=== PATIENT | female | born 1990 | race Caucasian/White ===

== ENCOUNTER 2021-05-28 14:48 | Observation (INO) | payer BC ==
[2021-05-28] MEDS ORDERED: Lactated Ringers 1,000 ML IV ONE (15:10)
[2021-05-28] MEDS ORDERED: Acetaminophen 325 MG Tab PO PRN ×3 (15:40→17:43)
[2021-05-28] MEDS ORDERED: Lactated Ringers 1,000 ML IV SCH (15:45)
[2021-05-28 16:45] LABS: ANION GAP 20.3 mEq/L (7-13); CHLORIDE,CL 103 mmol/L (98-107); SODIUM,NA 138 mmol/L (136-145)
[2021-05-28] MEDS ORDERED: MVI, Adult with Vitamin K 10 ML, Folic Acid 1 MG, Thiamine 100 MG in Lactated Ringers 1... IV ONE ×4 (16:54)
[2021-05-28] MEDS ORDERED: NS + KCl 20mEq/L 1,000 ML IV SCH (17:00)
[2021-05-28] MEDS ORDERED: Carboprost Tromethamine 250 MCG/1 ML Amp IM PRN ×2 (17:16→17:43)
[2021-05-28] MEDS ORDERED: Tranexamic Acid 1,000 MG in Sodium Chloride 0.9% 100 ML IV PRN ×2 (17:16→17:43)
[2021-05-28] MEDS ORDERED: Ondansetron 4 MG/2 ML SDV IVPUSH PRN ×2 (17:16→17:43)
[2021-05-28] MEDS ORDERED: Lidocaine 1% 30 ML SDV INJECT PRN ×2 (17:16→17:43)
[2021-05-28] MEDS ORDERED: Misoprostol 400 MCG (4 X 100 MCG TAB) RECTAL PRN ×2 (17:16→17:43)
[2021-05-28] MEDS ORDERED: fentaNYL 100 MCG/2 ML SDV IVPUSH PRN (17:16)
[2021-05-28] MEDS ORDERED: Methylergonovine 0.2 MG/1 ML Amp IM PRN ×2 (17:16→17:43)
[2021-05-28] MEDS ORDERED: Oxytocin/Normal Saline 30 UNIT/500 ML BAG IV SCH ×2 (17:30→17:45)
[2021-05-28] MEDS ORDERED: Famotidine 20 MG/2 ML SDV IVPUSH PRN (17:43)
[2021-05-28] MEDS ORDERED: Calcium Carbonate 500 MG Tab.Chew PO PRN (17:43)
[2021-05-28] MEDS ORDERED: Naloxone 2 MG/2 ML Syringe IVPUSH PRN (17:45)
[2021-05-28] MEDS ORDERED: Lactated Ringers 500 ML IV SCH ×2 (17:45)
[2021-05-28] MEDS ORDERED: Promethazine 25 MG/ML SDV IM PRN (17:45)
[2021-05-28] MEDS ORDERED: ePHEDrine 50 MG/ML SDV IVPUSH PRN (17:45)
[2021-05-28] MEDS ORDERED: fentaNYL 100 MCG/2 ML SDV IVPUSH ONE (18:07)
[2021-05-28] MEDS ORDERED: Docusate Sodium 100 MG Cap PO PRN (20:29)
[2021-05-28] MEDS ORDERED: Ibuprofen 800 MG Tab PO PRN (20:29)
[2021-05-28] MEDS ORDERED: Benzocaine/Menthol 20%-0.5% Spray 78 GM Cannister TOP PRN (20:29)
[2021-05-28] MEDS ORDERED: Zolpidem 5 MG Tab PO PRN (20:29)
[2021-05-28] MEDS ORDERED: Oxytocin 10 Units/1 ML SDV IM PRN (20:29)
[2021-05-28] MEDS ORDERED: Simethicone 80 MG Tab.Chew PO PRN (20:29)
[2021-05-28] MEDS ORDERED: Sodium Chloride 0.9% 10 ML Syringe FLUSH PRN (20:29)
[2021-05-28] MEDS ORDERED: Measles, Mumps & Rubella Vaccine 0.5 ML SDV SUBCUT ONE (20:29)
[2021-05-28] MEDS ORDERED: Witch Hazel Medicated Pads 100/Jar TOP PRN (22:05)
[2021-05-29] MEDS ORDERED: Prenatal Multivitamin with Calcium/Folic Acid/Iron Tab PO SCH (09:00)
[2021-05-29] MEDS ORDERED: Measles, Mumps & Rubella Vaccine 0.5 ML SDV SUBCUT ONE (14:00)
[2021-05-29] MEDS ORDERED: Docusate Sodium 100 MG Cap PO PRN (21:51)
[2021-05-29] MEDS ORDERED: Ibuprofen 800 MG Tab PO PRN (21:51)
== END 2021-05-30 11:41 | disposition home or self-care (01) ==
LOC: DL.OBCHECK 14:48 → DL.OB 15:53
PROVIDERS: ADMIT Family Medicine; ATTEND Family Medicine
DX: O99.891 Other specified diseases and conditions complicating pregnancy (principal); R19.7 Diarrhea, unspecified; E86.0 Dehydration; Z86.16 Personal history of COVID-19; Z90.49 Acquired absence of other specified parts of digestive tract; Z98.890 Other specified postprocedural states; Z3A.38 38 weeks gestation of pregnancy
CPT/HCPCS: 36415; 59409; 76819; 80053; 81001; 83735; 84132; 85025; 85027; 90471; 90707; A9270-GY; J2590; J3010; J3411; J3490; J7120